=== PATIENT | female | born 1950 | race Caucasian/White ===

== ENCOUNTER → 2025-06-14 06:49 | Outpatient (REF) | payer MEDICARE, OTHER, SELFPAY | LOC: RAD 06:49 | PROVIDERS: ATTENDING PHYSICIAN Urology; FAMILY PHYSICIAN Family Medicine | DX: R31.9 Hematuria, unspecified (principal) | CPT/HCPCS: 74178; Q9967 ==

== ENCOUNTER → 2025-06-19 06:55 | Outpatient (REF) | payer MEDICARE, OTHER, SELFPAY | LOC: RAD 06:55 | PROVIDERS: ATTENDING PHYSICIAN Student in an Organized Health Care Education/Training Program; FAMILY PHYSICIAN Family Medicine | DX: C84.60 Anaplastic large cell lymphoma, ALK-positive, unspecified site (principal); C84.7A Anaplastic large cell lymphoma, ALK-negative, breast | CPT/HCPCS: 71260; Q9967 ==